=== PATIENT | female | born 1965 | race Caucasian/White ===

== ENCOUNTER 2023-08-01 12:55 | Outpatient (CLI) | payer MEDICAID ==
[~2023-08-01 12:55] MED LIST: BUPR300T7 PO; DICL25TA PO; ESCI20TA39 PO; GABA-532 PO; GING250C PO; NAPR500T6 PO; OMEP40CA21 PO; ONDA4TAB6 PO; PREVCR VG; TEMA15CA PO; TIZA-189 PO; TOPI-95 PO
== END 2023-08-01 23:59 | disposition home or self-care (01) ==
LOC: MRI 12:55
PROVIDERS: ATTEND Podiatrist Foot & Ankle Surgery
DX: S86.011A Strain of right Achilles tendon, initial encounter (principal); M77.31 Calcaneal spur, right foot; M76.61 Achilles tendinitis, right leg; M25.471 Effusion, right ankle; M67.873 Other specified disorders of tendon, right ankle and foot; M72.2 Plantar fascial fibromatosis; X58.XXXA Exposure to other specified factors, initial encounter; Y93.89 Activity, other specified; Y92.89 Other specified places as the place of occurrence of the external cause; Y99.8 Other external cause status
CPT/HCPCS: 73721